=== PATIENT | female | born 1950 | race Caucasian/White ===

== ENCOUNTER 2024-04-17 00:43 | Observation (INO) | payer MEDICARE ==
[~2024-04-17] VITALS: Ht 160 cm; Wt 92.0 kg
[2024-04-17] VITALS (16 sets, daily range): BP systolic 102–147; BP diastolic 46–68
[2024-04-17] MEDS ORDERED: ASPIRIN 81 MG/TAB PO ONE (01:05)
[2024-04-17] MEDS ORDERED: ONDANSETRON HCl 4 MG/2 ML SDV IV ONE (01:05)
[2024-04-17] MEDS ORDERED: MORPHINE SULFATE 4 MG/ML VIAL SC ONE (01:05)
[2024-04-17 01:41] LABS: BASO% 0.3 % (0-3); EOS% 0.9 % (0-8); HEMATOCRIT 44.8 % (37.0-47.0); IMMATURE GRANULOCYTES 0.1 % (0.0-5.0); LYMPH% 11.1 % (15-41); MEAN CELL VOLUME 87.8 fL CALC (80.0-100.0); MEAN CORPUSCULAR HGB 27.5 pG CALC (26.0-32.0); MEAN CORPUSCULAR HGB CONC 31.3 g/dL CAL (32.0-36.0); MONO% 7.4 % (2-13); NEUT# 5.5 thou/uL (2.00-7.15); NEUT% 80.2 % (42-76); RED BLOOD COUNT 5.1 mill/uL (4.20-5.60); RED CELL DISTRI WIDTH 15.3 % (11.5-15.5); URINE BILIRUBIN - DIPSTICK Negative (NEGATIVE); URINE BLOOD DIPSTICK Trace-intact (NEGATIVE); URINE GLUCOSE - DIPSTICK Negative (NEGATIVE); URINE KETONE Negative (NEGATIVE); URINE LEUK ESTERASE Negative (NEGATIVE); URINE NITRITE - DIPSTICK Negative (Negative); URINE PROTEIN - DIPSTICK Negative (NEG-TRACE); URINE SPECIFIC GRAVITY 1.015; URINE UROBILINOGEN - DIPSTICK 0.2 E.U./dL (0.2)
[2024-04-17 01:42] LABS: URINE COLOR Yellow
[2024-04-17 01:51] LABS: ALBUMIN 3.8 g/dL (3.2-5.0); ALKALINE PHOSPHATASE 46 u/l (38-126); ANION GAP 10 (6-22 (CALC)); BILIRUBIN, TOTAL 0.6 mg/dL (0.02-1.3); BUN 16 mg/dL (8-23); BUN/CREATININE RATIO 22 (12-20 (CALC)); CARBON DIOXIDE 28 mmol/l (22-30); CHLORIDE 107 mmol/l (95-108); CREATININE 0.8 mg/dL (0.5-1.0); ESTIMATED GFR 78 ML/MIN (>=90 (CALC)); LIPASE 179 u/l (23-300); POTASSIUM 4.1 mmol/l (3.5-5.1); SGOT/AST 47 u/l (9-36); SODIUM 141 mmol/l (137-146); TOTAL PROTEIN 6.7 g/dL (6.3-8.2)
[2024-04-17] MEDS ORDERED: PIPERACILLIN Sodium-Tazobactam 3.375 GM in SODIUM CHLORIDE 0.9% 100 ML IV ONE (02:00)
[2024-04-17] MEDS ORDERED: SODIUM CHLORIDE 0.9% 1,000 ML IV ONE ×3 (02:05)
[2024-04-17] MEDS ORDERED: cefTRIAXone SODIUM 2 GM in SODIUM CHLORIDE 0.9% 100 ML IV ONE (03:10)
[2024-04-17] MEDS ORDERED: DOXYCYCLINE HYCLATE 100 MG in SODIUM CHLORIDE 0.9% 100 ML IV ONE (03:10)
[2024-04-17] MEDS ORDERED: ALUM & MAG HYDROX-SIMETHICONE 30 ML PO PRN (04:35)
[2024-04-17] MEDS ORDERED: ONDANSETRON HCl 4 MG/2 ML SDV IV PRN ×2 (04:35→08:40)
[2024-04-17] MEDS ORDERED: IBUPROFEN 800 MG/TAB PO PRN (04:35)
[2024-04-17] MEDS ORDERED: ONDANSETRON 4 MG/TAB ODT PO PRN (04:35)
[2024-04-17] MEDS ORDERED: Polyethylene Glycol 3350 17 GM/PKT PO PRN (04:35)
[2024-04-17] MEDS ORDERED: FAMOTIDINE 10MG/ML 2ML SDV IV PRN (04:35)
[2024-04-17] MEDS ORDERED: SODIUM CHLORIDE 0.45% 1,000 ML IV PRN (06:00)
[2024-04-17 08:59] LABS: BASO% 0.2 % (0-3); EOS% 1.3 % (0-8); HEMATOCRIT 43.2 % (37.0-47.0); HEMOGLOBIN 13.6 g/dl (12.0-16.0); LYMPH% 23.9 % (15-41); MEAN CELL VOLUME 88.9 fL CALC (80.0-100.0); MEAN CORPUSCULAR HGB CONC 31.5 g/dL CAL (32.0-36.0); MONO% 9.6 % (2-13); NEUT# 3.46 thou/uL (2.00-7.15); RED BLOOD COUNT 4.86 mill/uL (4.20-5.60); RED CELL DISTRI WIDTH 15.3 % (11.5-15.5)
[2024-04-17 09:12] LABS: ALBUMIN 3.4 g/dL (3.2-5.0); BILIRUBIN, TOTAL 0.4 mg/dL (0.02-1.3); CREATININE 0.7 mg/dL (0.5-1.0); POTASSIUM 4.3 mmol/l (3.5-5.1); TOTAL PROTEIN 6.1 g/dL (6.3-8.2)
[2024-04-17 09:13] LABS: INTERNATIONAL NORMALIZED RATIO 3.1 RATIO (0.7-1.3)
[2024-04-17] MEDS ORDERED: Pantoprazole Sodium 40 MG VIAL (Protonix) IV SCH (11:30)
[2024-04-17] MEDS ORDERED: ASCORBIC ACD1000 MG PO (11:51)
[2024-04-17] MEDS ORDERED: BIOTIN1000 MCG PO (11:54)
[2024-04-17] MEDS ORDERED: CO Q 1010 MG PO (11:55)
[2024-04-17] MEDS ORDERED: BISOPROL FUM5 MG PO (11:55)
[2024-04-17] MEDS ORDERED: FUROSEMIDE20 MG PO (11:56)
[2024-04-17] MEDS ORDERED: MAGNESIUM OXID250 M1 PO (11:56)
[2024-04-17] MEDS ORDERED: MILK THISTLE175 MG PO (11:56)
[2024-04-17] MEDS ORDERED: PROTONIX40 M2 PO (11:57)
[2024-04-17] MEDS ORDERED: CRESTOR40 MG PO (11:57)
[2024-04-17] MEDS ORDERED: SERTRALINE25 MG PO (11:57)
[2024-04-17] MEDS ORDERED: CARAFATE1 GM PO (11:58)
[2024-04-17] MEDS ORDERED: SUPER B COMP PO (11:58)
[2024-04-17] MEDS ORDERED: AZTREONAM 1 GM in SODIUM CHLORIDE 0.9% 50 ML IV SCH (12:00)
[2024-04-17] MEDS ORDERED: JANTOVEN2.5 MG PO (12:02)
[2024-04-17] MEDS ORDERED: TIZANIDINE4 MG PO (12:03)
[2024-04-17] MEDS ORDERED: KLOR-CON M1010 MEQ PO (12:03)
[2024-04-17] MEDS ORDERED: JANTOVEN5 MG PO (12:03)
[2024-04-17] MEDS ORDERED: TRAMADOL HYDROC50 M1 PO (12:04)
[2024-04-17] MEDS ORDERED: DOXYCYCLINE HYCLATE 100 MG in SODIUM CHLORIDE 0.9% 100 ML IV SCH (16:00)
[2024-04-17] MEDS ORDERED: SERTRALINE HCL 25 MG/TAB PO SCH (17:00)
[2024-04-17] MEDS ORDERED: SUCRALFATE 1 GM/TAB PO SCH (17:00)
[2024-04-17] MEDS ORDERED: traMADol HCL 50 MG/TAB PO SCH (17:00)
[2024-04-17] MEDS ORDERED: FUROSEMIDE 20 MG/TAB PO SCH (17:00)
[2024-04-18 04:53] VITALS: BP 113/45
[2024-04-18 05:35] LABS: EOS% 2.8 % (0-8); HEMATOCRIT 45.4 % (37.0-47.0); LYMPH% 30.6 % (15-41); MEAN CELL VOLUME 89.9 fL CALC (80.0-100.0); MEAN CORPUSCULAR HGB 27.7 pG CALC (26.0-32.0); MEAN CORPUSCULAR HGB CONC 30.8 g/dL CAL (32.0-36.0); MONO% 8.9 % (2-13); NEUT# 2.87 thou/uL (2.00-7.15); NEUT% 56.7 % (42-76); RED BLOOD COUNT 5.05 mill/uL (4.20-5.60); RED CELL DISTRI WIDTH 15.8 % (11.5-15.5)
[2024-04-18 05:50] LABS: INTERNATIONAL NORMALIZED RATIO 2.8 RATIO (0.7-1.3)
[2024-04-18 05:51] LABS: ALBUMIN 3.5 g/dL (3.2-5.0); CREATININE 0.7 mg/dL (0.5-1.0); MAGNESIUM 1.9 mg/dL (1.6-2.3); POTASSIUM 4.1 mmol/l (3.5-5.1); TOTAL PROTEIN 6.3 g/dL (6.3-8.2)
[2024-04-18 06:00] LABS: BILIRUBIN, TOTAL 0.9 mg/dL (0.02-1.3)
[2024-04-18 06:02] LABS: PROTHROMBIN TIME 28.5 SECONDS (9.0-12.5)
[2024-04-18] MEDS ORDERED: CIPROFLOXACN500 MG PO (09:53)
[2024-04-18 11:19] VITALS: BP 134/56
== END 2024-04-18 12:05 | disposition home or self-care (01) ==
LOC: ED 00:43 → ED-I 04:18 → ED 04:32 → MS2 04:33
PROVIDERS: Internal Medicine; Nurse Practitioner Family; ADMIT Internal Medicine; ATTEND Internal Medicine
DX: K80.20 Calculus of gallbladder without cholecystitis without obstruction (principal); I10 Essential (primary) hypertension; I25.10 Atherosclerotic heart disease of native coronary artery without angina pectoris; E78.5 Hyperlipidemia, unspecified; Z86.718 Personal history of other venous thrombosis and embolism; Z79.01 Long term (current) use of anticoagulants; Z95.5 Presence of coronary angioplasty implant and graft
CPT/HCPCS: G0378; J0457; J0696; J2405; J2470; Q9967